=== PATIENT | female | born 1985 | race Native Hawaiian/Other Pacific Islander ===

== ENCOUNTER 2020-06-02 08:13 | Emergency (ER) | payer OTHER ==
[~2020-06-02] VITALS: Ht 160 cm; Wt 113.4 kg
[2020-06-02 08:23] VITALS: TEMP 98.3
[2020-06-02 10:01] VITALS: BP 158/88
== END 2020-06-02 10:01 | disposition home or self-care (01) ==
LOC: ED 08:13
DX: J01.80 Other acute sinusitis (principal)
CPT/HCPCS: 87502; 87651; 99283